=== PATIENT | female | born 1995 | race Caucasian/White ===

== ENCOUNTER 2020-01-13 21:51 | Emergency (ER) | payer OTHER ==
[~2020-01-13] VITALS: Ht 157.5 cm; Wt 68.0 kg
[2020-01-14] MEDS ORDERED: PEPCID40 MG PO (07:50)
[2020-01-14] MEDS ORDERED: INTESTINEX680 M1 PO (07:50)
[2020-01-14] MEDS ORDERED: CIPRO500 MG PO (07:50)
== END 2020-01-14 08:09 | disposition home or self-care (01) ==
LOC: ER 21:51 → EDBD 21:55 → ER 21:55
DX: R11.2 Nausea with vomiting, unspecified (principal); E86.0 Dehydration; R19.7 Diarrhea, unspecified; R10.84 Generalized abdominal pain